=== PATIENT | female | born 1950 | race Two or more races ===

== ENCOUNTER 2025-04-04 01:27 | Inpatient (IN) | payer OTHER ==
[~2025-04-04] VITALS: Ht 154.9 cm; Wt 54.5 kg
[2025-04-04] VITALS (14 sets, daily range): BP systolic 109–126; BP diastolic 46–80; PULSE 59–74; RESP 13–18; TEMP 97.7–98.4; O2SAT 95–100
--- NOTE | 2025-04-04 02:21 | ED.PDOC ---
History of Present Illness HPI Comments 74-year-old female who presents to the ED via EMS, accompanied by daughter, for anxiety attack minutes ago. Per daughter, patient was involved in an argument with a family when onset of symptoms began. Patient reports initial symptoms of shaking, chest pain, and back pain with anxiety attack. Patient notes some tingling of the bilateral hands with the initial incident, but states symptoms have since subsided. Patient has a history of AL, and is currently on blood thinners. Patient otherwise denies symptoms of dizziness, weakness, palpitations, nausea, vomiting, fever. There are no further complaints or modifying factors at this time. Chief Complaint: Anxiety Time Seen by MD: 02:05 Reviewed Notes: Medications, Allergies Allergies: Coded Allergies: NO KNOWN ALLERGIES (Unverified , 04/04/25) Information Source: Patient Mode of Arrival: EMS Severity: Moderate Duration: Since onset Past Medical History PAST MEDICAL HISTORY: AL Surgical History: Denies all surgeries FOOD AND NUTRITION SERVICES SUPERVISOR History: No Pertinent FOOD AND NUTRITION SERVICES SUPERVISOR History Social History Smoker: Non-Smoker Alcohol: Denies ETOH Use Drugs: Denies Drug Use Lives In: Home Constitutional: denies: chills, diaphoresis, fatigue, fever, malaise, sweats, weakness, others EENTM: denies: blurred vision, double vision, ear bleeding, ear discharge, ear drainage, ear pain, ear ringing, eye pain, eye redness, hearing loss, mouth pain, mouth swelling, nasal discharge, nose bleeding, nose congestion, nose pain, photophobia, tearing, throat pain, throat swelling, voice changes, others Respiratory: denies: cough, hemoptysis, orthopnea, SOB at rest, shortness of breath, SOB with excertion, stridor, wheezing, others Cardiovascular: reports: chest pain; denies: dizzy spells, diaphoresis, Dyspnea on exertion, edema, irregular heart beat, left arm pain, lightheadedness, palpitations, PND, syncope, others Gastrointestinal: denies: abdomen distended, abdominal pain, blood streaked bowels, constipated, diarrhea, dysphagia, difficulty swallowing, hematemesis, melena, nausea, poor appetite, poor fluid intake, rectal bleeding, rectal pain, vomiting, others Genitourinary: denies: abnormal vagina bleeding, burning, dyspareunia, dysuria, flank pain, frequency, hematuria, incontinence, pain, , vagina discharge, urgency, others Neurological: denies: dizziness, fainting, headache, left sided numbness, left sided weakness, numbness, paresthesia, pre-existing deficit, right sided numbness, right sided weakness, seizure, speech problems, tingling, tremors, weakness, others Musculoskeletal: reports: back pain; denies: gout, joint pain, joint swelling, muscle pain, muscle stiffness, neck pain, others Integumetry: denies: bruises, change in color, change in hair/nails, dryness, laceration, lesions, lumps, rash, wounds, others Allergic/Immunocompromised: denies: Difficulty Healing, Frequent Infections, Hives, Itching, others Hematologic/Lymphatic: denies: anemia, blood clots, easy bleeding, easy bruising, swollen glands, others Endocrine: denies: excessive hunger, excessive sweating, excessive thirst, excessive urination, flushing, intolerance to cold, intolerance to heat, unexplained weight gain, unexplained weight loss, others Psychiatric: reports: anxiety; denies: bipolar disorder, depression, hopeless, panic disorder, schizophrenia, sleepless, suicidal, others All Other Systems: Reviewed and Negative Physical Exam General Appearance: No Apparent Distress, Normal HEENT: Normal ENT Inspection, Pharynx Normal, TMs Normal Neck: Full Range of Motion, Non-Tender, Normal, Normal Inspection Respiratory: Chest Non-Tender, Lungs Clear, No Accessory Muscle Use, No Respiratory Distress, Normal Breath Sounds Cardiovascular: No Edema, No JVD, No Murmur, No Gallop, Normal Peripheral Pulses, Regular Rate/Rhythm Breast Exam: Deferred Gastrointestinal: No Organomegaly, Non Tender, No Pulsatile Mass, Normal Bowel Sounds, Soft Genitalia: Deferred Pelvic: Deferred Rectal: Deferred Extremities: No calf tenderness, Normal capillary refill, Normal inspection, Normal range of motion, Non-tender, No pedal edema Musculoskeletal : Apperance: Normal Neurologic: Alert, district loss prevention manager II-XII nml as Tested, No Motor Deficits, Normal Affect, Normal Mood, No Sensory Deficits Cerebellar Function: Normal Reflexes: Normal Skin: Dry, Normal Color, Warm Lymphatic: No Adenopathy Was a procedure done? Was a procedure done?: No Differential Dx Considerations may include: Anxiety, chest wall pain, musculoskeletal strain X-Ray, Labs, Meds, VS Vital Signs Date Time Temp Pulse Resp B/P (MAP) Pulse Ox O2 Delivery O2 Flow Rate FiO2 04/04/25 01:36 98.8 72 20 108/72 98 98.8 Time of 1ST Reevaluation: 02:53 Reevaluation 1ST: Unchanged Patient Education/Counseling: Diagnosis, Treatment, Need For Follow Up Family Education/Counseling: Diagnosis, Treatment, Need For Follow Up SEPSIS Sepsis Screen Date sepsis recognized/suspect: Apr 04, 2025 Time Sepsis recognized/suspect: 0142 Recent Procedure: No On Antibiotic Therapy: No Respiratory Rate >20: No Heart Rate >90: No Temp<36 C (96.8 F) or >38.3 C: No SBP <90 or MAP <65 mmHG: No New Acute Mental Status Change: No Is the patient on CPAP, BIPAP,: No Vital Signs Date Time Temp Pulse Resp B/P (MAP) Pulse Ox O2 Delivery O2 Flow Rate FiO2 04/04/25 01:36 98.8 72 20 108/72 98 98.8 Critical Care Note Critical Care Time?: No Stability Stability form required: No Heart Score Heart Score: Heart Score Response (Comments) Value History N/A 0 EKG N/A 0 Age N/A 0 Risk Factors N/A 0 Troponin N/A 0 Total 0 I personally scribed for RENETTA MADRIGAL ([email or web address]) on 04/04/25 at 02:21. Electronically submitted by Gy[facility]). RENETTA MADRIGAL Apr 04, 2025 02:21
[2025-04-04 03:06] LABS: Potassium 4.0 mmol/L (3.5-5.1); Sodium 141 mmol/L (136-145)
[2025-04-04 03:07] LABS: Anion Gap 8 (5-15); Carbon Dioxide 26 mmol/L (20-31)
[2025-04-04 03:11] LABS: Hematocrit 33.9 % (36.0-46.0); Hemoglobin 11.5 g/dL (12.2-16.2); Mean Corpuscular Hemoglobin 30.5 pg (28.0-32.0); Mean Corpuscular Volume 90.1 fL (80.0-100.0); Nucleated Red Blood Cells % 0.1 %
[2025-04-04 03:12] LABS: BUN/Creatinine Ratio 28.2 (10.0-20.0)
[2025-04-04 03:20] LABS: Blood Urea Nitrogen 29 mg/dL (9-23); Calcium 8.6 mg/dL (8.7-10.4); Chloride 107 mmol/L (98-107); Glucose 124 mg/dL (74-106)
[2025-04-04] MEDS: MAALOX PLUS or MAALOX 30 ML PO ONE (03:36)
--- NOTE | 2025-04-04 03:57 | ECG ---
[facility] Test Date: 2025-04-04 Test Time: 01:55:34 Pat Name: JUAN ALBERTO GARNETT Department: ED Room: 0295T Gender: F Supervisor Frame Assembly: [id number] : [id number] Requested By: RENETTA CLAY* Order Number: [id number] Reading MD: Robin Salmon Measurements Intervals Mears Rate: 71 P: 29 UT: 126 QRS: 72 QRSD: 84 T: 55 QT: 410 QTc: 446 Interpretive Statements Sinus rhythm Low voltage, precordial leads Electronically Signed On 04-06-2025 10:30:55 PST by Robin Salmon Please click the below link to view image of tracing.
[2025-04-04] MEDS: ONDANSETRON ODT 4 MG TAB PO ONE (04:49)
[2025-04-04] MEDS ORDERED: NITROGLYCERIN 0.4 MG SL TAB SL PRN (08:15)
[2025-04-04] MEDS ORDERED: MORPHINE SULFATE 4 MG/ML SYR/VIAL IV PRN (08:30)
--- NOTE | 2025-04-04 08:52 | DVH ---
CLINICAL HISTORY: chf TECHNIQUE: Single view of the chest was obtained. COMPARISON: None FINDINGS: The heart size and pulmonary vasculature are normal. The lungs are clear. IMPRESSION: NO ACUTE CARDIOPULMONARY PROCESS.
[2025-04-04 09:31] LABS: Urine Protein, UAD Negative (Negative)
[2025-04-04] MEDS: ENOXAPARIN SOD 60 MG/0.6 ML SYRINGE SC SCH (09:50)
[2025-04-04] MEDS: IODIXANOL 320MG/ML 100ML BTL IV ONE (09:59)
[2025-04-04] MEDS: LIDOCAINE 2%HCL (LOCAL ANESTH.) INJ 20ML MDV ONE (10:09)
[2025-04-04] MEDS: ANGIOMAX 250 MG VIAL IV ONE (10:10)
[2025-04-04] MEDS: HEPARIN SODIUM (PORCINE) 5000 UNITS/ML 1ML VIAL ONE (10:11)
[2025-04-04] MEDS: fentaNYL CITRATE 100 MCG/2 ML VL ONE (10:11)
[2025-04-04] MEDS: VERAPAMIL 2.5MG/ML INJ 2ML VIAL IV ONE (10:11)
[2025-04-04] MEDS: SODIUM CHL 0.9% 0 ML ONE (10:12)
[2025-04-04] MEDS: MIDAZOLAM HCL 2MG/2ML 2ml VIAL (1mg/ml) ONE (10:12)
--- NOTE | 2025-04-04 10:22 | DVHINCON2 ---
Date of service: Apr 04, 2025 History of Present Illness HPI Patient is a 74-year-old female who presented to the hospital with anxiety attacks/chest pain/back pain and abdominal pain. She is Lao speaking and information was obtained by and talked to the daughter and also communicating with patient through clinical data programmer. She herself mentioned that she has history of heart problem for which follows with assistant oceanographer. She mentions that she takes Plavix as outpatient. She actually called her assistant oceanographer to get more information. I talked to that office and was found that the office is for primary care physician and not a assistant oceanographer. Patient mentions occasional chest discomfort. She has also been told that she has some stomach problem for which she takes antiacids. Since arrival, troponin was found to be somehow elevated. EKG has been non revealing. Past Medical History Others Past medical history as per patient includes hypertension and hyperlipidemia. Patient mentions questionable history of coronary artery disease. She is not sure if she ever had angiogram. Family history is not relevant. Denies alcohol/smoking abuse Smoker: No Hx (Negative) Alocohol: None Drugs: None Lives with: With family Review of Systems Constitutional: No symptom reported Ears, Nose, & Throat: No symptom reported Cardiovascular: Chest Pain Gastrointestinal: Abdominal Pain All Other Systems 14 point review of system was performed. Relevant findings as per above and as per HPI. Otherwise negative. H&P Exam Vital Signs Vital Signs Date Time Temp Pulse Resp B/P (MAP) Pulse Ox O2 Delivery O2 Flow Rate FiO2 04/04/25 09:30 70 16 133/55 (81) 97 04/04/25 08:05 97.9 97.9 04/04/25 07:32 Room Air* 0 21 General Appeara: Well developed Head Exam: Normal inspection Eye Exam: bilateral eye PERRL Pulmonary/Respiratory: Lungs clear Cardiovascular/Chest: Normal inspection, Regular rate Peripheral Pulses: 2+ carotid (R), 2+ carotid (L), 2+ femoral (R), 2+ femoral (L), 2+ dorsalis pedis (R), 2+ dorsalis pedis (L) Abdominal Exam: Normal bowel sounds Neuro/Mental St: Alert, Oriented Appearance: Appropriate appearance Eye contact/ Speech: Cooperative Labs/Xrays Labs Test 04/04/25 09:26 04/04/25 05:57 12/24/25 02:44 Range/Units Urine Color Colorless Yellow Urine Clarity Clear Clear Urine pH 7.0 5.0-9.0 Urine Specific [place] 1.009 1.001-1.035 Urine Protein Negative Negative Urine Ketones Negative Negative Urine Blood 1+ H Negative /uL Urine Nitrite Negative Negative Urine Bilirubin Negative Negative Urine Urobilinogen Normal Negative mg/dL Urine Leukocyte Esterase Negative Negative /uL Urine RBC 4 0 - 4 /hpf Urine Microscopic WBC < 1 0-5 /HPF Urine Squamous Epithelial Cells None seen <5 /hpf Urine Bacteria None seen None Seen /hpf Urine Glucose Normal Normal mg/dL Troponin I High Sensitivity 168 *H </=34 ng/L White Blood Count 6.1 4.4-10.8 10^3/uL Red Blood Count 3.76 L 4.0-5.20 10^6/uL Hemoglobin 11.5 L 12.2-16.2 g/dL Hematocrit 33.9 L 36.0-46.0 % Mean Corpuscular Volume 90.1 80.0-100.0 fL Mean Corpuscular Hemoglobin 30.5 28.0-32.0 pg Mean Corpuscular Hemoglobin Concent 33.9 32.0-36.0 g/dL Red Cell Distribution Width 13.6 11.8-14.3 % Platelet Count 269 140-450 10^3/uL Mean Platelet Volume 7.4 6.9-10.8 fL Neutrophils (%) (Auto) 79.1 37.0-80.0 % Lymphocytes (%) (Auto) 13.7 10.0-50.0 % Monocytes (%) (Auto) 5.5 0.0-12.0 % Eosinophils (%) (Auto) 1.2 0.0-7.0 % Basophils (%) (Auto) 0.5 0.0-2.0 % Neutrophils # (Auto) 4.9 1.6-8.6 10 ^3/uL Lymphocytes # (Auto) 0.8 0.4-5.4 10 ^3/uL Monocytes # (Auto) 0.3 0-1.3 10 ^3/uL Eosinophils # (Auto) 0.1 0-0.8 10 ^3/uL Basophils # (Auto) 0 0-0.2 10 ^3/uL Nucleated Red Blood Cells 0.1 % Sodium Level 141 136-145 mmol/L Potassium Level 4.0 3.5-5.1 mmol/L Chloride Level 107 98-107 mmol/L Carbon Dioxide Level 26 20-31 mmol/L Anion Gap 8 5-15 Blood Urea Nitrogen 29 H 9-23 mg/dL Creatinine 1.03 H 0.550-1.02 mg/dL Glomerular Filtration Rate Calc 56 >90 mL/min BUN/Creatinine Ratio 28.2 H 10.0-20.0 Serum Glucose 124 H 74-106 mg/dL Calcium Level 8.6 L 8.7-10.4 mg/dL Assessment/Plan Plan Patient is a 74-year-old female who presented to the hospital with anxiety attacks/chest pain/back pain and abdominal pain. She is Lao speaking and information was obtained by and talked to the daughter and also communicating with patient through clinical data programmer. She herself mentioned that she has history of heart problem for which follows with assistant oceanographer. She mentions that she takes Plavix as outpatient. She actually called her assistant oceanographer to get more information. I talked to that office and was found that the office is for primary care physician and not a assistant oceanographer. Patient mentions occasional chest discomfort. She has also been told that she has some stomach problem for which she takes antiacids. Since arrival, troponin was found to be somehow elevated. EKG has been non revealing. Not in acute distress. Lying flat in bed. No JVD. Mucosa is pink and wet. No carotid bruit. No goiter. Lungs are clear to auscultation. Cardiac: Regular, no thrill/gallop. No thrill. Abdomen is soft. Bowel sound is positive. Mild epigastric tenderness is elicited. No rebound tenderness. No peripheral edema. Dorsalis pedis is 2+ bilateral. There is no gross lateralized neurologic deficit. Past medical history as per patient includes hypertension and hyperlipidemia. Patient mentions questionable history of coronary artery disease. She is not sure if she ever had angiogram. Family history is not relevant. Denies alcohol/smoking abuse Hemoglobin: 11.5 Creatinine: 1.03 Troponin (high sensitive): 159 - 155 - 168 Chest x-ray: IMPRESSION: NO ACUTE CARDIOPULMONARY PROCESS. EKG revealed sinus rhythm with no specific ST-T changes Patient is a 74-year-old female who presented with chest pain/abdominal pain. Does have history of hypertension/hyperlipidemia. There was question about coronary artery disease. Troponin was found to have been minimally elevated. There was question about non-STEMI. Non-STEMI Hypertension Hyperlipidemia Peptic ulcer disease Cardiac suggestion for management: Managed on telemetry Follow-up electrolytes and kidney function tests and correct abnormalities Echocardiogram Left heart catheterization Aspirin/Plavix Further evaluation and management depends on the above and clinical course Thank you for consultation A total of 75 minutes was spent reviewing the patient record, examining the patient, making a diagnostic and therapeutic plan, discussing this plan with medical personnel, following up on diagnostic studies and following the patient for clinical stability excluding any and all procedures. At least 50% of this time was spent in direct, [id number] contact. Thank you for allowing me to participate in this patient's care. Further recommendations will depend on patient's clinical course. Please do not hesitate to contact me if you have any questions or concerns. This medical document was created using electronic medical record system with [employer] computerized dictation system. Although this document has been carefully reviewed, there may still be some phonetic and typographical errors. These areas are purely typographical due to the imperfection of the software programs, and do not reflect any compromise in the patient's medical care. Plan discussed with: Patient, Other (nurse) YURY OLSON MD Apr 04, 2025 10:22
[2025-04-04 10:39] LABS: INR 1.0 (0.9-1.15); Prothrombin Time 10.6 sec (9.3-11.8)
--- NOTE | 2025-04-04 11:28 | DVHOP2 ---
Operative Report Procedures performed: Left heart catheterization and bilateral coronary angiogram Moderate sedation Ultrasound-guided femoral artery access Diagnosis: No angiographic evidence for epicardial coronary artery disease (normal coronaries) Mid to distal LAD was very small-caliber vessel. LVEF of 65% with mildly elevated EDP Cardiac suggestion for management: Optimized medical therapy Lifestyle and risk factor modifications Findings: LVEF: 65% LVEDP: 16 mm Hg There was no transaortic valve pressure gradient Left main: Left main was coming off the left sinus of Valsalva. It was free of disease. LAD: LAD was coming off the left main. It was a medium sized vessel. It did not provide any significant diagonal branches. LAD itself from mid to distal: became a small-caliber vessel. LAD was free of disease Ramus intermedius: Ramus intermedius came off left main. It was a large branching vessel. Ramus intermedius throughout its course and branches was free of disease. LCX: LCX was coming off the left main. It was a medium-sized vessel. It provided 1 medium-sized obtuse marginal. LCX throughout its course and branches was free of disease. RCA: RCA was coming off the right sinus of Valsalva. It was the dominant vessel and provided RPDA/RPLS. RCA throughout its course and branches was free of disease. Presentation: Patient is a 74-year-old female who presented to the hospital with chest/upper abdominal pain. Does have history of hypertension. There was question about old myocardial infarction. Troponin was somehow elevated and with diagnosis of non-STEMI the patient was sent for cardiac catheterization. Procedure: After obtaining informed consent, the patient was brought to the labor relations consultant. She was prepped and draped in sterile fashion. 1 mg of Versed and 50 mcg of fentanyl were used for moderate sedation. At first, we attempted to use the right radial artery for access. We even used ultrasound for guidance. Unfortunately the artery was too small and we could not get the access through it. We decided to proceed to get the access in the right femoral artery. Using ultrasound guidance and micropuncture, the right femoral artery was accessed. After proving a good access point, micropuncture sheath was exchanged over a wire to a 6 Ecuadorean femoral sheath. A 6 Ecuadorean JL4 diagnostic catheter was used to perform left coronary angiography. A 6 [place]cuad[place] JR4 diagnostic catheter was used to perform right coronary angiography. A 6 [place]cuadorean pigtail catheter was used to perform left heart catheterization (obtaining pressures and performing left ventriculography). There was no indication for any transcatheter revascularization. Total bleeding was less than 15 mL. There was no dissection/hematoma/perforation. Right femoral artery access site was managed by deploying an Angio-Seal device. Attempted right radial artery access site was managed by manual compression. Patient tolerated the procedure with no complication. Fluoroscopy time: 2.9 minutes contrast: 40 mL of Visipaque YURY OLSON MD Apr 04, 2025 11:28
[2025-04-04] MEDS: SODIUM CHLORIDE 0.9% 1,000 ML IV SCH (13:45)
--- NOTE | 2025-04-04 13:45 | DVHHP2 ---
History of Present Illness History of Present Illness Merlyn Callahan presented to the emergency room with anxiety and panic attacks related to concerns about her daughter. The patient denies experiencing chest pain, dizziness, nausea, or vomiting in association with these episodes. Review of Systems Cardiovascular: No: Chest Pain, Palpitations, Orthopnea, Paroxysmal Noc. Dyspnea, Edema, Lt Headedness, Other Genitourinary: No Dysuria, No Frequency, No Incontinence, No Hematuria, No Retention, No Other Musculoskeletal: No: other, neck pain, shoulder pain, arm pain, back pain, hand pain, leg pain, foot pain Allergies: Coded Allergies: NO KNOWN ALLERGIES (Unverified , 04/04/25) Medications Current Medications Medications Dose Ordered Sig/Lou Route Start Time Stop Time Status Last Admin Dose Admin Acetaminophen/ Hydrocodone Bitart 1 tab Q4HP PRN PO 04/04/25 08:15 Nitroglycerin 0.4 mg Q5MINP PRN SL 04/04/25 08:15 Morphine Sulfate 2 mg Q30M PRN IV 04/04/25 08:30 Enoxaparin Sodium 50 mg Q12HR SC 04/04/25 10:00 Aspirin 81 mg DAILY PO 04/04/25 10:00 Sodium Chloride 1,000 ml @ 50 mls/hr Q20H IV 04/04/25 13:45 UNV Exam Vital Signs Vital Signs Date Time Temp Pulse Resp B/P (MAP) Pulse Ox O2 Delivery O2 Flow Rate FiO2 04/04/25 12:50 60 15 120/51 (74) 96 04/04/25 11:30 98.3 98.3 04/04/25 07:32 Room Air* 0 21 General Appearance: Alert, Oriented X3, Cooperative, No acute distress Respiratory: Clear to auscultation, Normal air movement Cardiovascular: Regular rate, Normal S1, Normal S2 Abdominal: Normal bowel sounds, Soft, No tenderness, No hepatospenomegaly Extremities: No clubbing, No cyanosis Skin: No rashes, No breakdown Labs/Xrays Labs Test 04/04/25 09:26 04/04/25 05:57 04/04/25 02:44 Range/Units Urine Color Colorless Yellow Urine Clarity Clear Clear Urine pH 7.0 5.0-9.0 Urine Specific [place] 1.009 1.001-1.035 Urine Protein Negative Negative Urine Ketones Negative Negative Urine Blood 1+ H Negative /uL Urine Nitrite Negative Negative Urine Bilirubin Negative Negative Urine Urobilinogen Normal Negative mg/dL Urine Leukocyte Esterase Negative Negative /uL Urine RBC 4 0 - 4 /hpf Urine Microscopic WBC < 1 0-5 /HPF Urine Squamous Epithelial Cells None seen <5 /hpf Urine Bacteria None seen None Seen /hpf Urine Glucose Normal Normal mg/dL Prothrombin Time 10.6 9.3-11.8 sec Prothrombin Time INR 1.00 0.9-1.15 Troponin I High Sensitivity 168 *H </=34 ng/L White Blood Count 6.1 4.4-10.8 10^3/uL Red Blood Count 3.76 L 4.0-5.20 10^6/uL Hemoglobin 11.5 L 12.2-16.2 g/dL Hematocrit 33.9 L 36.0-46.0 % Mean Corpuscular Volume 90.1 80.0-100.0 fL Mean Corpuscular Hemoglobin 30.5 28.0-32.0 pg Mean Corpuscular Hemoglobin Concent 33.9 32.0-36.0 g/dL Red Cell Distribution Width 13.6 11.8-14.3 % Platelet Count 269 140-450 10^3/uL Mean Platelet Volume 7.4 6.9-10.8 fL Neutrophils (%) (Auto) 79.1 37.0-80.0 % Lymphocytes (%) (Auto) 13.7 10.0-50.0 % Monocytes (%) (Auto) 5.5 0.0-12.0 % Eosinophils (%) (Auto) 1.2 0.0-7.0 % Basophils (%) (Auto) 0.5 0.0-2.0 % Neutrophils # (Auto) 4.9 1.6-8.6 10 ^3/uL Lymphocytes # (Auto) 0.8 0.4-5.4 10 ^3/uL Monocytes # (Auto) 0.3 0-1.3 10 ^3/uL Eosinophils # (Auto) 0.1 0-0.8 10 ^3/uL Basophils # (Auto) 0 0-0.2 10 ^3/uL Nucleated Red Blood Cells 0.1 % Sodium Level 141 136-145 mmol/L Potassium Level 4.0 3.5-5.1 mmol/L Chloride Level 107 98-107 mmol/L Carbon Dioxide Level 26 20-31 mmol/L Anion Gap 8 5-15 Blood Urea Nitrogen 29 H 9-23 mg/dL Creatinine 1.03 H 0.550-1.02 mg/dL Glomerular Filtration Rate Calc 56 >90 mL/min BUN/Creatinine Ratio 28.2 H 10.0-20.0 Serum Glucose 124 H 74-106 mg/dL Calcium Level 8.6 L 8.7-10.4 mg/dL SEPSIS Sepsis Screen Date sepsis recognized/suspect: Apr 04, 2025 Time Sepsis recognized/suspect: 533 Recent Procedure: No On Antibiotic Therapy: No Respiratory Rate >20: No Heart Rate >90: No Temp<36 C (96.8 F) or >38.3 C: No SBP <90 or MAP <65 mmHG: No New Acute Mental Status Change: No Is the patient on CPAP, BIPAP,: No Physician Orders Admit (04/04/25 08:01) Allergies (04/04/25 08:01) Code Status (04/04/25 08:01) Hydrocodone-Acet 5/325mg Tab ([place] /32 (04/04/25 08:15) Cardiac Diet-2gna,Lofat,Lochol (04/04/25 Breakfast) Nitroglycerin Sublingual (Ntrostat Subli (04/04/25 08:15) Stat Ekg For Chest Pain (04/04/25 08:01) Notify Md Of Changes From Base (04/04/25 08:01) Binder Coverstitch For 24 Hours (04/04/25 08:01) Emergency Dysrhythmia Protocol (04/04/25 08:01) Rhythm Strips Once Every Shift (04/04/25 08:01) Oxygen By Nasal Cannula (04/04/25 08:01) *Consult Dr. Wagner (04/04/25 08:01) Chest Portable (04/04/25 08:03) Aspirin Chewable Tablet (04/04/25 10:00) Morphine Sulfate Injection (04/04/25 08:30) Enoxaparin Sodium (Lovenox) (04/04/25 10:00) Cl Left Heart Cath (04/04/25 09:54) Post Cath Vital Signs Q 15min (04/04/25 ) Post Cath Activity Protocol (04/04/25 11:32) Sodium Chloride 0.9% (04/04/25 13:45) Vital Signs Date Time Temp Pulse Resp B/P (MAP) Pulse Ox O2 Delivery O2 Flow Rate FiO2 04/04/25 12:50 60 15 120/51 (74) 96 04/04/25 12:22 61 16 111/50 (70) 96 04/04/25 12:07 64 16 122/56 (78) 96 04/04/25 11:52 60 13 109/51 (70) 96 04/04/25 11:37 62 14 119/48 (71) 96 04/04/25 11:30 98.3 60 14 125/55 (78) 95 98.3 04/04/25 09:30 70 16 133/55 (81) 97 04/04/25 08:05 97.9 63 17 126/51 (76) 99 97.9 04/04/25 08:00 59 04/04/25 07:32 17 99 Room Air* 0 21 04/04/25 06:39 97.9 64 21 160/55 (90) 99 97.9 Laboratory Tests Test 04/04/25 02:44 White Blood Count 6.1 10^3/uL (4.4-10.8) Medications Medications Dose Ordered Sig/Lou Route Start Time Stop Time Status Last Admin Dose Admin Al Hydrox/Mg Hydrox/Simethicone 30 ml ONCE ONCE PO 04/04/25 02:30 04/04/25 02:32 DC 04/04/25 03:36 30 ML Aspirin 325 mg ONCE ONCE PO 04/04/25 09:45 04/04/25 09:46 DC 04/04/25 09:49 325 MG Fentanyl Citrate 100 mcg STK-MED ONCE .ROUTE 04/04/25 10:11 04/04/25 10:10 DC 04/04/25 10:11 50 MCG Midazolam HCl 2 mg STK-MED ONCE .ROUTE 04/04/25 10:12 04/04/25 10:11 DC 04/04/25 10:12 1 MG Assessment/Plan Assessment/Plan ACS Assessment: Troponin found to be mildly elevated at 100, with levels as high as 160.8. Given the elevated troponin in the setting of emergency department presentation, there is concern for acute coronary syndrome requiring further cardiac evaluation and monitoring. Plan: - Cardiology consultation - Left heart catheterization - Start full-dose Lovenox - Admit to telemetry monitoring - Serial troponin monitoring Hypertension Assessment: Patient has known hypertension requiring ongoing monitoring and management. Plan: - Monitor blood pressure Hyperlipidemia Assessment: Patient has established hyperlipidemia currently managed with statin therapy. Plan: - Continue statin therapy Anxiety and panic attacks Assessment: Patient presented with anxiety and panic attacks related to concerns about her daughter. Patient denies associated chest pain, dizziness, nausea, or vomiting. Plan: Plan discussed with: Patient My Orders Orders - RONALD GILLIAM Procedure Category Date Status Time Admit ADMIT 04/04/25 Transmitted 08:01 Allergies KORY 04/04/25 In Process 08:01 Code Status CODE 04/04/25 Transmitted 08:01 Hydrocodone-Acet PHA 04/04/25 In Process 5/325mg Tab ([place] 08:15 Cardiac DIET 04/04/25 Transmitted Diet-2gna,Lofat,Lochol Breakfast Nitroglycerin PHA 04/04/25 In Process Sublingual (Ntrostat 08:15 Stat Ekg For Chest KORY 04/04/25 In Process Pain 08:01 Notify Of Changes KORY 04/04/25 In Process From Base 08:01 Binder Coverstitch For KORY 04/04/25 In Process 24 Hours 08:01 Emergency Dysrhythmia KORY 04/04/25 In Process Protocol 08:01 Rhythm Strips Once KORY 04/04/25 In Process Every Shift 08:01 Oxygen By Nasal RT 04/04/25 Transmitted Cannula 08:01 *Consult Dr[address] Wagner CONS 04/04/25 Transmitted 08:01 Chest Portable XY 04/04/25 Resulted 08:03 Aspirin Chewable PHA 04/04/25 In Process Tablet 10:00 Morphine Sulfate PHA 04/04/25 In Process Injection 08:30 Enoxaparin Sodium PHA 04/04/25 In Process (Lovenox) 10:00 Sodium Chloride 0.9% PHA 04/04/25 Logged 13:45 Date of Service: Apr 04, 2025 Billing Provider: KLEBER RAVI MD Common Visit Codes: [id number] INP/OBS CARE (MOD) RONALD GILLIAM Apr 04, 2025 13:45
[2025-04-05 01:00] VITALS: BP 117/62; PULSE 66; RESP 16; TEMP 98.1; O2SAT 96
[2025-04-05 05:00] VITALS: BP 109/60; PULSE 66; RESP 16; TEMP 97.9; O2SAT 97
[2025-04-05 07:52] LABS: Hematocrit 32.9 % (36.0-46.0); Hemoglobin 10.9 g/dL (12.2-16.2); Mean Corpuscular Hemoglobin 30.4 pg (28.0-32.0); Mean Corpuscular Volume 91.8 fL (80.0-100.0); Nucleated Red Blood Cells % 0.1 %
[2025-04-05 08:00] VITALS: PULSE 62; PULSE 74; RESP 16; O2SAT 98
[2025-04-05 08:09] LABS: Albumin 3.5 g/dL (3.2-4.8); Alkaline Phosphatase 79 U/L (46-116); Anion Gap 5 (5-15); BUN/Creatinine Ratio 18.9 (10.0-20.0); Bilirubin, Total 0.9 mg/dL (0.2-1.0); Blood Urea Nitrogen 18 mg/dL (9-23); Carbon Dioxide 28 mmol/L (20-31); Glucose 93 mg/dL (74-106); Potassium 5.1 mmol/L (3.5-5.1); Sodium 142 mmol/L (136-145); Total Protein 5.9 g/dL (5.7-8.2)
[2025-04-05 08:11] LABS: Alanine Aminotransferase 114 U/L (7-40); Calcium 8.3 mg/dL (8.7-10.4); Chloride 109 mmol/L (98-107)
[2025-04-05 08:46] VITALS: BP 126/67; PULSE 71; RESP 18; TEMP 98; O2SAT 96
--- NOTE | 2025-04-05 10:44 | DVH ---
CLINICAL HISTORY: r.o cva TECHNIQUE: Helical scanning was performed of the head from the skull base to the vertex. Multiplanar reconstructions were performed. This exam was performed according to our departmental dose optimization program. Up-to-date CT equipment and radiation dose reduction techniques are utilized as appropriate. CTDI 52 DLP 929. Modest COMPARISON: None FINDINGS: There is no evidence for acute intracranial hemorrhage, acute ischemic changes, mass, mass effect, or extra-axial fluid collection. There is no hydrocephalus or midline shift. There is no effacement of the cerebral sulci and basal subarachnoid cisterns. The redding-white matter differentiation is well maintained. The imaged paranasal sinuses are clear. IMPRESSION: NO ACUTE INTRACRANIAL ABNORMALITY SEEN.
[2025-04-05] MEDS: PANTOPRAZOLE 40 MG TAB PO ONE (11:53)
--- NOTE | 2025-04-05 11:57 | DVHSR ---
APPROVED REPORT EXAM: Two-dimensional and M-mode echocardiogram with Doppler and color Doppler. Blood Pressure: 126/51 mmHg INDICATION chf RISK FACTORS Height: 5'1, Weight: 119 DIMENSIONS LVDd 3.3 (3.8-5.7cm) LA (2D) 2.4 (1.9-4.0cm) Aortic Root 2.3 (2.0-3.7cm) LVDs 2.2 (2.5-4.0cm) LA (MM) (1.9-4.0cm) Aortic Cusp Exc 1.6 (1.5-2.0cm) EF (%) 55.0 (55-70%) Rt. Atrium 3.2 (1.9-4.0cm) Asc. Aorta 2.2 cm IVSd 0.7 (0.7-1.1cm) RV (D) 3.7 (1.8-2.4cm) PWd 0.8 (0.7-1.1cm) Mitral Valve Mitral Mitral Stenosis E wave 0.60m/s MV Mean GR. mmHg A wave 0.57m/s MV Peak GR. mmHg E/A ratio 1.1 2D MVA cm2 DECEL Time 192ms PRESS 1/2 Time ms Aortic Valve Aortic Valve Aortic Stenosis V1 0.71m/s AO Mean GR. 2mmHg V2 1.06m/s AO Peak GR. 5mmHg LVOT Diameter 1.7 (1.8-2.4cm) Doppler JULI 1.52cm2 Other Information Quality : TDS Rhythm : Technically limited study due to body habitus.patient position. Pt laying completely flat unable to turn Conclusion Left ventricle: Left ventricle was normal-sized with normal systolic function. LVEF was 60-65%. There was no wall motion abnormality. Diastolic function of left ventricle was considered normal. Right ventricle was normal-sized with normal systolic function. Both atria were normal-sized. Aortic valve: Aortic valve was not well visualized. There was no aortic insufficiency/stenosis. There was no mitral/tricuspid regurgitation. Pulmonary valve was not well visualized. There was no pulmonary valve insufficiency. As there was no good tricuspid regurgitation jet, right ventricular systolic pressure could not be estimated. There was no echocardiographic evidence for pulmonary hypertension. Pericardium was hyperechoic.
--- NOTE | 2025-04-05 12:04 | DVHPN2 ---
Progress Note - Dictate Date Seen: Apr 05, 2025 Medical Necessity Reason Pt with a Central, PICC or Fol: No vital signs Vital Sign Date Time Temp Pulse Resp B/P (MAP) Pulse Ox O2 Delivery O2 Flow Rate FiO2 04/05/25 08:46 98.0 71 18 126/67 (86) 96 98.0 04/04/25 20:00 Room Air* 0 21 Total Intake and Output 04/04/25 04/04/25 04/05/25 15:00 23:00 07:00 Intake Total 345 ml 240 ml Output Total 200 ml Balance 345 ml 40 ml medications Current Medications Medications Dose Ordered Sig/Lou Route Start Time Stop Time Status Last Admin Dose Admin Acetaminophen/ Hydrocodone Bitart 1 tab Q4HP PRN PO 04/04/25 08:15 Nitroglycerin 0.4 mg Q5MINP PRN SL 04/04/25 08:15 Morphine Sulfate 2 mg Q30M PRN IV 04/04/25 08:30 Enoxaparin Sodium 50 mg Q12HR SC 04/04/25 10:00 04/04/25 21:33 50 MG Aspirin 81 mg DAILY PO 04/04/25 10:00 Pantoprazole Sodium 40 mg DAILY@0600 PO 04/06/25 06:00 laboratory and microbiology Laboratory Tests 04/05/25 07:34 Test 04/05/25 07:34 Range/Units Serum Glucose 93 74-106 mg/dL Assessment/Plan Patient is a 74-year-old female who presented to the hospital with anxiety attacks/chest pain/back pain and abdominal pain. She is [place]i speaking and information was obtained by and talked to the daughter and also communicating with patient through pack puller. She herself mentioned that she has history of heart problem for which follows with placement specialist. She mentions that she takes Plavix as outpatient. She actually called her placement specialist to get more information. I talked to that office and was found that the office is for primary care physician and not a placement specialist. Patient mentions occasional chest discomfort. She has also been told that she has some stomach problem for which she takes antiacids. Since arrival, troponin was found to be somehow elevated. EKG has been non revealing. Not in acute distress. Lying flat in bed. No JVD. Mucosa is pink and wet. No carotid bruit. No goiter. Lungs are clear to auscultation. Cardiac: Regular, no thrill/gallop. No thrill. Abdomen is soft. Bowel sound is positive. Mild epigastric tenderness is elicited. No rebound tenderness. No peripheral edema. Dorsalis pedis is 2+ bilateral. There is no gross lateralized neurologic deficit. Past medical history as per patient includes hypertension and hyperlipidemia. Patient mentions questionable history of coronary artery disease. She is not sure if she ever had angiogram. Family history is not relevant. Denies alcohol/smoking abuse Hemoglobin: 11.5 - 10.9 Creatinine: 1.03 - 0.95 K: 4.0 - 5.1 Troponin (high sensitive): 159 - 155 - 168 Chest x-ray: IMPRESSION: NO ACUTE CARDIOPULMONARY PROCESS. CT of head revealed: IMPRESSION: NO ACUTE INTRACRANIAL ABNORMALITY SEEN. EKG revealed sinus rhythm with no specific ST-T changes Echocardiogram revealed: Left ventricle: Left ventricle was normal-sized with normal systolic function. LVEF was 60-65%. There was no wall motion abnormality. Diastolic function of left ventricle was considered normal. Right ventricle was normal-sized with normal systolic function. Both atria were normal-sized. Aortic valve: Aortic valve was not well visualized. There was no aortic insufficiency/stenosis. There was no mitral/tricuspid regurgitation. Pulmonary valve was not well visualized. There was no pulmonary valve insufficiency. As there was no good tricuspid regurgitation jet, right ventricular systolic pressure could not be estimated. There was no echocardiographic evidence for pulmonary hypertension. Pericardium was hyperechoic. Cardiac Cath revealed: No angiographic evidence for epicardial coronary artery disease (normal coronaries). Mid to distal LAD was very small-caliber vessel. LVEF of 65% with mildly elevated EDP Patient is a 74-year-old female who presented with chest pain/abdominal pain. Does have history of hypertension/hyperlipidemia. There was question about coronary artery disease. Troponin was found to have been minimally elevated. There was question about non-STEMI. Cardiac cath revealed normal coronaries. Echo revealed good LV systolic/diastolic function and no valvular disease. Non-STEMI Hypertension Hyperlipidemia Peptic ulcer disease Cardiac suggestion for management: Managed on telemetry Follow-up electrolytes and kidney function tests and correct abnormalities Evaluation and management of anxiety and GI symptoms as per primary team. Further evaluation and management depends on the above and clinical course Cardiac padgett is stable and can be followed as outpatient A total of 55 minutes was spent reviewing the patient record, examining the patient, making a diagnostic and therapeutic plan, discussing this plan with medical personnel, following up on diagnostic studies and following the patient for clinical stability excluding any and all procedures. At least 50% of this time was spent in direct, [id number] contact. Thank you for allowing me to participate in this patient's care. Further recommendations will depend on patient's clinical course. Please do not hesitate to contact me if you have any questions or concerns. This medical document was created using electronic medical record system with [employer] computerized dictation system. Although this document has been carefully reviewed, there may still be some phonetic and typographical errors. These areas are purely typographical due to the imperfection of the software programs, and do not reflect any compromise in the patient's medical care. Plan discussed with: Patient, Other (nurse) YURY OLSON MD Apr 05, 2025 12:04
[2025-04-05] MEDS: HYDROcodone-ACET 5/325MG TAB PO PRN (12:05)
[2025-04-05] MEDS ORDERED: PANT40T PO (12:43)
[2025-04-05] MEDS ORDERED: CYCL-837 PO (12:43)
--- NOTE | 2025-04-05 12:46 | DVHDS2 ---
Discharge Summary Date of Admission Apr 04, 2025 at 08:01 Date of Discharge: Apr 05, 2025 Admitting Diagnosis ACS Labs/Diagnostic Data: Laboratory Results Test 04/05/25 07:34 04/04/25 09:26 04/04/25 05:57 White Blood Count 4.8 10^3/uL (4.4-10.8) Red Blood Count 3.58 10^6/uL (4.0-5.20) Hemoglobin 10.9 g/dL (12.2-16.2) Hematocrit 32.9 % (36.0-46.0) Mean Corpuscular Volume 91.8 fL (80.0-100.0) Mean Corpuscular Hemoglobin 30.4 pg (28.0-32.0) Mean Corpuscular Hemoglobin Concent 33.1 g/dL (32.0-36.0) Red Cell Distribution Width 14.2 % (11.8-14.3) Platelet Count 230 10^3/uL (140-450) Mean Platelet Volume 7.1 fL (6.9-10.8) Neutrophils (%) (Auto) 67.2 % (37.0-80.0) Lymphocytes (%) (Auto) 24.5 % (10.0-50.0) Monocytes (%) (Auto) 5.6 % (0.0-12.0) Eosinophils (%) (Auto) 2.2 % (0.0-7.0) Basophils (%) (Auto) 0.5 % (0.0-2.0) Neutrophils # (Auto) 3.2 10 ^3/uL (1.6-8.6) Lymphocytes # (Auto) 1.2 10 ^3/uL (0.4-5.4) Monocytes # (Auto) 0.3 10 ^3/uL (0-1.3) Eosinophils # (Auto) 0.1 10 ^3/uL (0-0.8) Basophils # (Auto) 0 10 ^3/uL (0-0.2) Nucleated Red Blood Cells 0.1 % Sodium Level 142 mmol/L (136-145) Potassium Level 5.1 mmol/L (3.5-5.1) Chloride Level 109 mmol/L (98-107) Carbon Dioxide Level 28 mmol/L (20-31) Anion Gap 5 (5-15) Blood Urea Nitrogen 18 mg/dL (9-23) Creatinine 0.95 mg/dL (0.550-1.02) Glomerular Filtration Rate Calc 62 mL/min (>90) BUN/Creatinine Ratio 18.9 (10.0-20.0) Serum Glucose 93 mg/dL (74-106) Calcium Level 8.3 mg/dL (8.7-10.4) Total Bilirubin 0.9 mg/dL (0.2-1.0) Aspartate Amino Transferase (AST) 114 U/L (13-40) Alanine Aminotransferase (ALT) 114 U/L (7-40) Alkaline Phosphatase 79 U/L (46-116) Total Protein 5.9 g/dL (5.7-8.2) Albumin 3.5 g/dL (3.2-4.8) Urine Color Colorless (Yellow) Urine Clarity Clear (Clear) Urine pH 7.0 (5.0-9.0) Urine Specific [place] 1.009 (1.001-1.035) Urine Protein Negative (Negative) Urine Ketones Negative (Negative) Urine Blood 1+ /uL (Negative) Urine Nitrite Negative (Negative) Urine Bilirubin Negative (Negative) Urine Urobilinogen Normal mg/dL (Negative) Urine Leukocyte Esterase Negative /uL (Negative) Urine RBC 4 /hpf (0 - 4) Urine Microscopic WBC < 1 /HPF (0-5) Urine Squamous Epithelial Cells None seen /hpf (<5) Urine Bacteria None seen /hpf (None Seen) Urine Glucose Normal mg/dL (Normal) Prothrombin Time 10.6 sec (9.3-11.8) Prothrombin Time INR 1.00 (0.9-1.15) Troponin I High Sensitivity 168 ng/L (</=34) Other Laboratory Tests 04/05/25 07:34 Brief Hx & Hospital Course: The patient was admitted for evaluation of acute coronary syndrome (ACS). ACS was ultimately ruled out. Serial troponins were noted to be mildly elevated in the 100s, and the patient was taken to the cardiac catheterization laboratory by cardiology, Dr. Vail. Coronary angiography demonstrated clear coronary arteries without evidence of obstructive coronary artery disease. The elevated troponin level is felt to be secondary to demand ischemia (non-coronary etiology). During hospitalization, the patient was also found to be anemic with a hemoglobin of 10.9. The patient reported episodes of body shaking and endorsed recent use of prednisone; these symptoms were felt to be possibly related to adverse effects from prednisone, and the patient was advised to discontinue prednisone and not resume it at home. A CT scan of the head was obtained and was negative for any acute intracranial process. The patient remained hemodynamically stable with improvement in symptoms and no recurrent chest pain. She will be discharged home in stable condition with a muscle relaxant and a proton pump inhibitor for management of musculoskeletal discomfort and GERD symptoms. The patient is instructed to follow up with her primary care provider within one week of discharge and to return to the emergency department for any worsening symptoms, including chest pain, shortness of breath, dizziness, or recurrent shaking. Condition at Discharge: Fair Final Diagnosis/Problems List ACS ruled out Hypertension Hyperlipidemia Anxiety and panic attacks elevated troponin likley demand ischemia Discharge Disposition: Home Discharge Instruct/Medications Diet: Cardiac 2g Na,low cholest Activity: No Restrictions, As Tolerated Follow Up/Referral: PCP within 1 week Scheduled Cyclobenzaprine Hcl (Cyclobenzaprine Hcl), 1 TAB PO QPM Pantoprazole Sodium Sesquihydr (Pantoprazole Sodium), 40 MG PO DAILY@0600 Discharge Statement: "Patient was advised to return to the ER or call 911 if any headaches, dizziness, shortness of breath, chest pain, abdominal pain, bleeding, fevers, or worsening of medical condition. Patient was counseled about treatment plan, medications, possible side effects, patientverbalized understanding. All questions were answered to the best of my ability. This discharge took greater then 30 minutes in planning, reviewing documentation, counseling the patient, and discussing with other team members." ASSESSMENT ASSESSMENT Assessment ACS ruled out Hypertension Hyperlipidemia Anxiety and panic attacks elevated troponin likley demand ischemia RONALD GILLIAM Apr 05, 2025 12:46
[2025-04-05 13:00] VITALS: BP 146/70; PULSE 69; RESP 18; TEMP 97.9; O2SAT 96
[2025-04-06] MEDS ORDERED: PANTOPRAZOLE 40 MG TAB PO SCH (06:00)
== END 2025-04-05 17:45 | disposition home or self-care (01) | DRG 190 ==
LOC: EDBD 01:27 → ER 01:27 → OVERFLOW 08:01 → TELE-WESTW 13:58
PROVIDERS: ADMIT Nurse Practitioner; ATTEND Nurse Practitioner Family
PROC: 4A023N7 Measurement of Cardiac Sampling and Pressure, Left Heart, Percutaneous Approach (ICD-10-PCS; principal; 2025-04-04)
PROC: B211YZZ Fluoroscopy of Multiple Coronary Arteries using Other Contrast (ICD-10-PCS; 2025-04-04)
PROC: B215YZZ Fluoroscopy of Left Heart using Other Contrast (ICD-10-PCS; 2025-04-04)
DX: R07.89 Other chest pain (principal); I21.A1 Myocardial infarction type 2; D64.9 Anemia, unspecified; Z79.02 Long term (current) use of antithrombotics/antiplatelets; I10 Essential (primary) hypertension; K27.9 Peptic ulcer, site unspecified, unspecified as acute or chronic, without hemorrhage or perforation; E78.5 Hyperlipidemia, unspecified; F41.0 Panic disorder [episodic paroxysmal anxiety]; I25.10 Atherosclerotic heart disease of native coronary artery without angina pectoris; I25.2 Old myocardial infarction
CPT/HCPCS: 36415; 70450; 71045; 80048; 80053; 81001; 84484; 85025; 85610; 93005; 93306; 93458; 99152; C1894; G0378; J2250; Q0162; Q9967